=== PATIENT | male | born 1955 | race Caucasian/White ===

== ENCOUNTER 2023-08-02 11:42 | Inpatient (IN) | payer OTHER, MEDICAID ==
[2023-08-02 12:18] LABS: #Basophils 0.07 10x3/uL (0.0-0.2); %Basophils 0.9 % (0.0-1.0); %Eosinophils 1.4 % (0.0-10.0); %Lymphocytes 17.7 % (21.0-51.0); %Monocytes 6.9 % (0.0-10.0); %Neutrophils 72.2 % (42.0-75.0); Hematocrit 33.5 % (42.0-52.0); Hemoglobin 10.9 g/dL (14.0-18.0); Mean Corpuscular HGB CONC 32.5 g/dL (32.0-36.0); Mean Corpuscular Hemoglobin 30.2 pg (27.0-31.0); Mean Corpuscular Volume 92.8 fL (78.0-98.0); Mean Platelet Volume 11.2 fL (7.4-10.4); Platelet Count 189 10x3/uL (130-400); RBC Distribution Width 13.8 % (11.5-14.5); Red Blood Cell (RBC) Count 3.61 mill/uL (4.70-6.10)
[2023-08-02] MEDS ORDERED: Ondansetron PF 4 MG/2 ML Vial ONE (12:25)
[2023-08-02 12:33] LABS: PTT 30.3 sec (22.9-36.1); Prothrombin Time 12.8 sec (12.0-14.7)
[2023-08-02 12:35] LABS: ALT (SGPT) 9 U/L (8-55); AST (SGOT) 11 U/L (5-34); Albumin 2.9 g/dL (3.4-4.8); Alkaline Phosphatase 68 U/L (40-110); Anion Gap 13 mmol/L (10-20); BUN (Urea Nitrogen) 13 mg/dL (8.4-25.7); Bilirubin, Total 0.2 mg/dL (0.2-1.2); CK (CPK) 44 U/L (30-200); Calc. Creatinine Clearance 0 mL/min (70-130); Calcium 8.2 mg/dL (7.8-10.44); Carbon Dioxide 23 mmol/L (23-31); Chloride 110 mmol/L (98-107); Estimated GFR 76; Globulin 2.2 g/dL (2.4-3.5); Glucose 93 mg/dL (80-115); Potassium 4.4 mmol/L (3.5-5.1); Protein, Total 5.1 g/dL (5.8-8.1); Sodium 142 mmol/L (136-145)
[2023-08-02 12:36] LABS: Magnesium 1.7 mg/dL (1.6-2.6)
[2023-08-02 12:37] LABS: Acetaminophen Less than 10 mcg/mL (10.0-30.0); Alcohol Less than 10.0 mg/dL (Less than 10); Salicylate Less than 8.0 mg/dL (15.0-30.0)
[2023-08-02 12:39] LABS: Troponin I Less than 0.010 ng/mL (< 0.028)
[2023-08-02] MEDS ORDERED: Aspirin 81 mg Enteric Coated Tablet ONE (13:18)
[2023-08-02] MEDS ORDERED: Aspirin Chewable 81 MG TAB ONE (13:19)
[2023-08-02 13:51] LABS: Bacteria/HPF None Seen HPF (None Seen); Bilirubin Negative (Negative); Blood, Urine Negative (Negative); CAUTI Indications for Culture Alt mental st,lethar; Clarity Clear (Clear); Glucose, Urine (Dipstick) Normal (Negative); Ketone, Urine Negative (Negative); Leukocyte Negative Leu/uL (Negative); Nitrite Negative (Negative); Protein, Urine (Dipstick) Negative (Neg-Trace); RBC/HPF None Seen HPF (0-3); Specific Gravity, Urine 1.004 (1.002-1.036); Squamous Epithelial None Seen HPF (0-3); Urobilinogen Normal mg/dL (Less than 2); WBC/HPF None Seen HPF (0-3)
[2023-08-02 13:58] LABS: Urine Culture Reflex No No
[2023-08-02 13:59] LABS: Amphetamine Not Detected (NotDetected); Barbiturates Screen Not Detected (NotDetected); Benzodiazepine Screen Not Detected (NotDetected); Cocaine Metabolite Screen Not Detected (NotDetected); Methadone Not Detected (NotDetected); Methamphetamine Not Detected (NotDetected); Opiate Screen Not Detected (NotDetected); Oxycodone Screen Not Detected (NotDetected); Phencyclidine (PCP) Not Detected (NotDetected); THC/Cannabinoid Screen Not Detected (NotDetected); Tricyclic Screen Detected (NotDetected)
[2023-08-02] MEDS ORDERED: HYDROcodone/Acetaminophen 5/325 mg Tablet ONE (14:14)
[2023-08-02] MEDS ORDERED: hydrALAZINE 20 MG/ML VIAL SLOW IVP PRN (15:43)
[2023-08-02] MEDS ORDERED: Electrolyte Replacement Protocol 1 EACH FS SCH (15:46)
[2023-08-02 17:01] LABS: Troponin I Less than 0.010 ng/mL (< 0.028)
[2023-08-02] MEDS: Acetaminophen 325 MG TAB PO SCH (17:15)
[2023-08-02] MEDS ORDERED: Magnesium 2 GM/50 ML BAG (IN WATER) ONE (17:16)
[2023-08-02] MEDS: Magnesium 2 GM/50 ML(in water) 2 GM in Premix 1 BAG IVPB SCH (17:30)
[2023-08-02] MEDS: Colchicine 0.6 MG TAB PO SCH (18:56)
[2023-08-02 19:32] LABS: Troponin I Less than 0.010 ng/mL (< 0.028)
[2023-08-02] MEDS: Atorvastatin Calcium 40 MG TAB PO SCH (22:46)
[2023-08-03 01:35] VITALS: BMI 22.6
[2023-08-03 04:23] LABS: #Basophils 0.08 10x3/uL (0.0-0.2); %Eosinophils 2.4 % (0.0-10.0); %Lymphocytes 26.8 % (21.0-51.0); %Monocytes 7.9 % (0.0-10.0); %Neutrophils 61.3 % (42.0-75.0); Hematocrit 37.6 % (42.0-52.0); Hemoglobin 11.9 g/dL (14.0-18.0); Mean Corpuscular HGB CONC 31.6 g/dL (32.0-36.0); Mean Corpuscular Hemoglobin 30.7 pg (27.0-31.0); Mean Corpuscular Volume 96.9 fL (78.0-98.0); Platelet Count 195 10x3/uL (130-400); RBC Distribution Width 14.1 % (11.5-14.5); Red Blood Cell (RBC) Count 3.88 mill/uL (4.70-6.10)
[2023-08-03 05:10] LABS: Anion Gap 13 mmol/L (10-20); Calc. Creatinine Clearance 43 mL/min (70-130); Calcium 9.2 mg/dL (7.8-10.44); Carbon Dioxide 25 mmol/L (23-31); Cardiac Risk 4.3 (Less than 4.5); Chloride 112 mmol/L (98-107); Cholesterol 145 mg/dl (< 200 Desired); Estimated GFR 55; Glucose 79 mg/dL (80-115); HDL Cholesterol 34 mg/dL (>60 Neg Risk); LDL Cholesterol, Calculated 63 mg/dL; Potassium 4.3 mmol/L (3.5-5.1); Sodium 146 mmol/L (136-145); Triglycerides 238 mg/dL (Less than 150)
[2023-08-03 05:25] LABS: BUN (Urea Nitrogen) 14 mg/dL (8.4-25.7)
[2023-08-03] MEDS: Nicotine 21 MG PATCH TD SCH (11:03)
[2023-08-03] MEDS: Gabapentin 300 MG CAP PO SCH (11:08)
[2023-08-03] MEDS: traMADol HCl 50 MG TAB PO PRN (11:08)
[2023-08-03] MEDS: Aspirin 81 mg Enteric Coated Tablet PO SCH (11:09)
[2023-08-03] MEDS: Allopurinol 100 MG TAB PO SCH (11:10)
[2023-08-03] MEDS: Colchicine 0.6 MG TAB PO SCH (11:10)
[2023-08-03] MEDS: Atorvastatin Calcium 40 MG TAB PO SCH (20:44)
[2023-08-03] MEDS: Acetaminophen 650 MG/20.3 ML UDCUP PO SCH (22:10)
[2023-08-03] MEDS: Ketorolac Tromethamine 30 MG (1 mL) VIAL IVP SCH (22:34)
[2023-08-03] MEDS: Sodium Chloride 0.9% 1,000 ML IV SCH (22:35)
[2023-08-04 04:42] LABS: Anion Gap 11 mmol/L (10-20); BUN (Urea Nitrogen) 17 mg/dL (8.4-25.7); Calc. Creatinine Clearance 46 mL/min (70-130); Calcium 8.9 mg/dL (7.8-10.44); Carbon Dioxide 28 mmol/L (23-31); Chloride 106 mmol/L (98-107); Estimated GFR 59; Glucose 155 mg/dL (80-115); Potassium 4.4 mmol/L (3.5-5.1); Sodium 141 mmol/L (136-145)
[2023-08-04] MEDS: Acetaminophen 650 MG/20.3 ML UDCUP PO SCH (05:37)
[2023-08-04] MEDS: predniSONE 20 MG TAB PO SCH (09:14)
[2023-08-04] MEDS: Pantoprazole DR 40 MG TAB PO SCH (09:14)
[2023-08-04] MEDS: methylPREDNISolone Sod Succ 40 MG VIAL IVP SCH (11:47)
[2023-08-04 12:20] VITALS: BP 126/85; TEMP 98.7
== END 2023-08-04 15:09 | disposition home or self-care (01) | DRG 917 ==
LOC: ERS 11:42 → ERHOLD 15:24 → 2SE 21:48 → OBSVTOIN 08-04 08:35
PROVIDERS: ADMIT Internal Medicine; ATTEND Family Medicine
DX: T43.591A Poisoning by other antipsychotics and neuroleptics, accidental (unintentional), initial encounter (principal); G92.8 Other toxic encephalopathy; I25.10 Atherosclerotic heart disease of native coronary artery without angina pectoris; E78.5 Hyperlipidemia, unspecified; M10.9 Gout, unspecified; G62.9 Polyneuropathy, unspecified; Z79.899 Other long term (current) drug therapy
CPT/HCPCS: 36415; 36416; 70450; 70551; 71045; 80048; 80053; 80061; 80306; 80307; 81001; 82550; 83605; 83735; 84484; 85025; 85610; 85730; 86141; 87040; 93005; 93306; 94760; 96361; 96374; J1885; J2405; J2920; J3475; J7050; J7512